=== PATIENT | female | born 1945 | race Caucasian/White ===

== ENCOUNTER 2018-07-02 15:23 | Observation (INO) | payer OTHER ==
--- OUTSIDE RECORDS SUMMARY | 2018-07-02 15:25 | XMS REPORT | Clinical Summary ---
:1945 Author Organization [facility] Address [address] [place] [address] Care Team Providers Name Role Phone Koby Urena MD Primary Care Provider Allergies Active Allergy Reactions Severity Noted Date Comments Diphenhydramine Tannate 03/29/2018 Current Medications Prescription Sig. Disp. Refills Start Date End Date Status levothyroxine Take 75 mcg by mouth Active (SYNTHROID, LEVOXYL) 75 every morning. mcg tablet multivitamin capsule Take 1 capsule by Active mouth daily. ascorbate calcium Take by mouth. Active (VITAMIN C ORAL) magnesium oxide 250 mg Take 250 mg by mouth Active tablet daily. BIOTIN ORAL Take by mouth. Active melatonin 5 mg tablet Take by mouth. Active tablet lidocaine HCl (LIDOCAINE 20 mg by mucous Active VISCOUS MM) membrane route. lidocaine (XYLOCAINE) 2 Apply topically as Active % jelly needed for mild pain. Active Problems Problem Noted Date Gastroesophageal reflux disease without esophagitis 04/02/2018 Last Assessment & Plan: The patient complains of heartburn and regurgitation that has worsened over the past year. 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 Her last EGD on 03/22/18 showed a 9 mm stenosis. The patient will need an esophagram, high resolution esophageal manometry as well as a 48-hour gordon pH study. She will return to clinic after testing is complete. Encounters Date Type Specialty Care Team Description 05/30/2018 Procedure Pass Gastroenterology 05/30/2018 Surgery Gastroenterology Xin Baker ESOPHAGEAL MANOMETRY MD Quentin WITH GORDON 48 HOUR RETURN 05/28/2018 Hospital Encounter Gastroenterology Xin Baker MD 05/28/2018 Procedure Pass Gastroenterology 05/28/2018 Surgery Gastroenterology Xin Baker MD 05/24/2018 Hospital Encounter Gastroenterology Xin Baker MD 04/06/2018 Telephone General Surgery Sander Nichole MD 03/29/2018 Hospital Encounter Radiology Sander Nichole Gastroesophageal reflux disease, esophagitis presence not specified 03/29/2018 Office Visit General Surgery Sander Nichole Gastroesophageal reflux disease without esophagitis (Primary Dx) 03/29/2018 Orders Only General Surgery Sander Nichole Gastroesophageal reflux disease, esophagitis presence not specified (Primary Dx) after 07/01/2017 Family History Medical History Relation Name Comments Cancer Brother Cancer Brother COPD Brother No Known Problems Daughter Cancer Father Cancer Mother Dementia Sister No Known Problems Sister Cancer Sister No Known Problems Son Relation Name Status Comments Brother Brother Brother Daughter Alive Father Maternal Grandfather Maternal Grandmother Mother Paternal Grandfather Paternal Grandmother Sister Alive Sister Sister Son Alive Social History Tobacco Use Types Packs/Day Years Used Date Former Smoker Cigarettes 1 20 Quit: 1998 Smokeless Tobacco: Never Used Alcohol Use Drinks/Week oz/Week Comments Yes 3 Standard drinks or equivalent 1.8 Sex Assigned at Date Recorded Not on file Last Filed Vital Signs Vital Sign Reading Time Taken Blood Pressure 128/58 05/28/2018 1:17 PM CDT Pulse 72 05/28/2018 1:17 PM CDT Temperature 36.7 C (98.1 F) 05/28/2018 12:44 PM CDT Respiratory Rate 20 05/28/2018 12:44 PM CDT Oxygen Saturation 94% 05/28/2018 1:17 PM CDT Inhaled Oxygen Concentration - - Weight 57.1 kg (125 lb 12.8 oz) 03/29/2018 12:10 PM CDT Height 162.6 cm (5' 4") 03/29/2018 12:10 PM CDT Body Mass Index 21.59 03/29/2018 12:10 PM CDT Plan of Treatment Health Maintenance Due Date Last Done Comments BREAST CANCER SCREENING 1997 COLON CANCER SCREENING 1997 SHINGRIX VACCINE (#1) 1997 ZOSTER VACCINE 2007 PNEUMOCOCCAL-13 2012 INFLUENZA VACCINE 05/16/2018 06/16/2012 PNEUMOCOCCAL POLYSACCHARIDE VACCINE AGE 65 AND OVER Completed 08/16/2011 Procedures Procedure Name Priority Date/Time Associated Diagnosis Comments GORDON CAPSULE 05/28/2018 12:00 PM CDT Chronic GERD Case Notes DR NICHOLE ORDERING Special Needs DR NICHOLE ORDERING [place] ESOPHAGRAM STAT 03/29/2018 2:32 PM Gastroesophageal reflux Results for this COMPLETE CDT disease, esophagitis procedure are in presence not specified the results section. after 07/01/2017 Results [place] Esophagram Complete (03/29/2018 2:32 PM) Narrative Performed At EXAMINATION:[place] ESOPHAGRAM COMPLETE RADIANT CLINICAL HISTORY:K21.9 Gastro-esophageal reflux disease without esophagitis, GERD COMPARISON:None. Fluoroscopy time: 1.9 minutesTOTAL IMAGES: 42Peak Skin Dose:33 mGy FINDINGS: The patient swallowed barium contrast without difficulty. There is diminished peristalsis of the esophagus. A small amount of debris/retained material is noted within the distal esophagus. A moderate degree of delay is noted in clearing of the contrast from the distal esophagus with a closed lower esophageal sphincter. There is intermittent, delayed clearing of the contrast through the LES. No focal mucosal abnormality is identified. There is no evidence of stricture. The esophagogastric junction is unremarkable. There is no evidence of gastroesophageal reflux. A trace amount of contrast did enter the airway relating to silent aspiration. 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 IMPRESSION: Esophageal dysmotility. There is moderately diminished peristalsis involving the esophagus with a moderate delay in clearing clearing of the contrast from the distal esophagus/LES. Trace silent aspiration. [facility]-[id number] Procedure Note Interface, Radiology Results Incoming - 03/29/2018 2:59 PM CDT EXAMINATION: [place] ESOPHAGRAM COMPLETE CLINICAL HISTORY: K21.9 Gastro-esophageal reflux disease without esophagitis, GERD COMPARISON: None. Fluoroscopy time: 1.9 minutes TOTAL IMAGES: 42 Peak Skin Dose: 33 mGy FINDINGS: The patient swallowed barium contrast without difficulty. There is diminished peristalsis of the esophagus. A small amount of debris/retained material is noted within the distal esophagus. A moderate degree of delay is noted in clearing of the contrast from the distal esophagus with a closed lower esophageal sphincter. There is intermittent, delayed clearing of the contrast through the LES. No focal mucosal abnormality is identified. There is no evidence of stricture. The esophagogastric junction is unremarkable. There is no evidence of gastroesophageal reflux. A trace amount of contrast did enter the airway relating to silent aspiration. 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 IMPRESSION: Esophageal dysmotility. There is moderately diminished peristalsis involving the esophagus with a moderate delay in clearing clearing of the contrast from the distal esophagus/LES. Trace silent aspiration. [facility]-[id number] Performing Organization Address City/State/Zipcode Phone Number [facility] [address] [place] [address] after 07/01/2017 Insurance Payer Benefit Plan / Group Subscriber ID Type Phone Address MEDICARE MEDICARE PART A AND B xxxxxxxxxx Medicare [place], [place] AETNA AETNA PPO OPEN CHOICE xxxxxxxxx PPO y [phone] [place] [phone]
--- OUTSIDE RECORDS SUMMARY | 2018-07-02 15:25 | XMS REPORT ---
:1945 Author Organization [employer] Care Team Providers Name Role Phone Stuart Pino Provider Role Unavailable Allergies, Adverse Reactions, Alerts Substance Reaction Event Type Dytan Info Not Available Drug Allergy Problems Problem Type Condition Code Onset Dates Condition Status Problem Attention to tracheostomy V55.0 Active Problem Vocal cord paralysis, J38.0# 478.3 Active Problem Mechanical complication of 519.02 Active tracheostomy Problem Edema of larynx J38.4 Active Problem Acute tracheitis without J04.10 Active obstruction Problem Vocal cord paralysis J38.00 Active Problem Other specified disorders of H69.82 Active Eustachian tube, left ear Problem Allergic rhinitis, seasonal J30.2 Active Problem 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 Active Problem Otalgia, left ear H92.02 Active Assessment 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 Active Assessment Allergic rhinitis, seasonal J30.2 Active Assessment Vocal cord paralysis J38.00 Active Problem 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
--- OUTSIDE RECORDS SUMMARY | 2018-07-02 15:25 | XMS REPORT ---
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
--- OUTSIDE RECORDS SUMMARY | 2018-07-02 15:25 | XMS REPORT ---
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 and smell * Assessment Allergic rhinitis, seasonal J30.2 Active Problem Deviated nasal septum J34.2 Active Assessment Edema of larynx J38.4 Active Problem Hypertrophy of nasal turbinates J34.3 Active Medications Medication Code Code Instructions Start End Status Dosage System Date Date Levothyroxine [facility] [address]-76 Active not Sodium defined Qnasl [facility] 89394147833 80 MCG/ACT Jul 15, Active 2 puffs Nasally Once a 2015 in each day nostril Tylenol Cold NDC 0 Active not Relief defined Diflucan ND 26374789922 100 MG Orally January Active 1 tablet Three times a 2017 Results No Known Results Summary Purpose [employer] Submission
--- NOTE | 2018-07-02 16:07 | RAD REPORT ---
EXAM DESCRIPTION: RAD - Chest Pa And Lat (2 Views) - 07/02/2018 3:58 pm CLINICAL HISTORY: Bloody productive cough COMPARISON: January 2018 TECHNIQUE: PA and lateral views of the chest were obtained. FINDINGS: The lungs are normal volume. The anteromedial right lung base opacification is present. In the acute clinical setting this is most likely pneumonia. No similar finding in January. Malignant ma ss is a lesser consideration. Repeat imaging can be performed following pneumonia medical management to assure resolution. Trach tube is in place. Trachea is midline. Heart size is normal and central vasculature is within no rmal limits. No pleural effusion or pneumothorax seen. No acute bony finding noted. No aortic abno rmality. IMPRESSION: Anterior right lung base opacification most likely pneumonia. Continued close follow-up is needed to assure clearing and no underlying mass.
[2018-07-02 17:10] LABS: Absolute Lymphocytes (CBC) 1.3 K/uL (0.7-4.9); Absolute Monocytes 0.9 K/uL (0.1-1.3); Absolute Neutrophil 6.1 K/uL (1.8-8.0); Basophils % 0.8 % (0-1.3); Eosinophils % 2.1 % (0-4.4); Hematocrit 35.6 % (36.0-45.0); Lymphocytes % 15.5 % (15.3-44.8); MCH 30.2 pg (27.0-35.0); MCV 89.9 fL (80-100); Monocytes % 10.4 % (3.3-12.3); RBC Red Blood Cell Count 3.96 M/uL (3.86-4.86)
[2018-07-02 17:12] LABS: Protime INR 0.94
[2018-07-02 17:26] LABS: ALT/SGPT 18 U/L (12-78); AST/SGOT 15 U/L (15-37); Albumin 3.4 g/dL (3.4-5.0); Alkaline Phosphatase 82 U/L (45-117); BUN Blood Urea Nitrogen 19 mg/dL (7-18); Bicarbonate 32 mmol/L (21-32); Bilirubin Direct < 0.1 mg/dL (0-0.2); Bilirubin Total 0.2 mg/dL (0.2-1.0); CKMB Creatine Kinase MB < 1.0 ng/mL (0.3-3.6); Creatine Phosphokinase 74 U/L (26-192); Glucose Level 96 mg/dL (74-106); Lipase 132 U/L (73-393); Potassium 3.8 mmol/L (3.5-5.1); Protein, Total 7.9 g/dL (6.4-8.2); Sodium Level 138 mmol/L (136-145); Troponin (Emerg Dept Use Only) < 0.02 ng/mL (0.0-0.045)
[2018-07-02] MEDS ORDERED: PIPER/TAZO/NS 3.375gm 3.375 GM/100 ML BAG ONE (17:41)
--- NOTE | 2018-07-02 18:09 | EDPHYS ---
Physician Documentation [facility] Name: Abeba Forrester Age: 72 yrs Sex: Female : 1945 Arrival Date: 07/02/2018 Time: 15:24 Bed 15 Private MD: Koby Urena ED Physician Bernabe Lyman HPI: 07/02 16:37 This 72 yrs old Female presents to ER via Ambulatory with complaints of snw Productive Cough - BLOOD. 16:37 The patient or guardian reports cough, described as mild. Onset: The symptoms/episode snw began/occurred suddenly, today. Severity of symptoms: At their worst the symptoms were mild, moderate. Associated signs and symptoms: Pertinent positives: "sinus infection". The patient has not experienced similar symptoms in the past. It is unknown whether or not the patient has recently seen a physician. 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 Denies bleeding in the past. Historical: - Allergies: 16:34 Dytan; kr2 - Home Meds: 17:14 levothyroxine 75 mcg tab [Active]; caltrate [Active]; Vitryes [Active]; Multivitamins kr2 [Active]; Vitamin C Oral [Active]; Magnesium Oxide Oral [Active]; biotin oral oral [Active]; Melatonin Oral [Active]; 17:20 Lidocaine Viscous 2 % Oral soln 15 mL [Active]; kr2 - PMHx: 17:20 Hypothyroidism; Breast scar tissue removal; kr2 - PSHx: 17:20 Trach; G tube; kr2 - Immunization history:: Adult Immunizations unknown. - Social history:: Smoking status: Patient/guardian denies using tobacco. - Ebola Screening: : No symptoms or risks identified at this time. ROS: 16:34 Constitutional: Negative for fever, chills, and weight loss, Eyes: Negative for injury, snw pain, redness, and discharge, ENT: Negative for injury, pain, and discharge, Neck: Negative for injury, pain, and swelling, Cardiovascular: Negative for chest pain, palpitations, and edema, Respiratory: Negative for shortness of breath, wheezing, and pleuritic chest pain, mild cough with blood today x 2. Abdomen/GI: Negative for abdominal pain, nausea, vomiting, diarrhea, and constipation, Back: Negative for injury and pain, : Negative for injury, bleeding, discharge, and swelling, MS/Extremity: Negative for injury and deformity, Skin: Negative for injury, rash, and discoloration, Neuro: Negative for headache, weakness, numbness, tingling, and seizure. Exam: 16:34 Constitutional: This is a well developed, well nourished patient who is awake, alert, snw and in no acute distress. Head/Face: Normocephalic, atraumatic. Eyes: Pupils equal round and reactive to light, extra-ocular motions intact. Lids and lashes normal. Conjunctiva and sclera are non-icteric and not injected. Cornea within normal limits. Periorbital areas with no swelling, redness, or edema. ENT: Nares patent. No nasal discharge, no septal abnormalities noted. Tympanic membranes are normal and external auditory canals are clear. Oropharynx with no redness, swelling, or masses, exudates, or evidence of obstruction, uvula midline. Mucous membranes moist. Neck: Trachea midline, no thyromegaly or masses palpated, and no cervical lymphadenopathy. Supple, full range of motion without nuchal rigidity, or vertebral point tenderness. No Meningismus. Chest/axilla: Normal chest wall appearance and motion. Nontender with no deformity. No lesions are appreciated. Cardiovascular: Regular rate and rhythm with a normal S1 and S2. No gallops, murmurs, or rubs. Normal PMI, no JVD. No pulse deficits. Abdomen/GI: Soft, non-tender, with normal bowel sounds. No distension or tympany. No guarding or rebound. No evidence of tenderness throughout. Back: No spinal tenderness. No costovertebral tenderness. Full range of motion. Skin: Warm, dry with normal turgor. Normal color with no rashes, no lesions, and no evidence of cellulitis. MS/ Extremity: Pulses equal, no cyanosis. Neurovascular intact. Full, normal range of motion. Neuro: Awake and alert, GCS 15, oriented to person, place, time, and situation. Cranial nerves II-XII grossly intact. Motor strength 5/5 in all extremities. Sensory grossly intact. Cerebellar exam normal. Normal gait. 16:34 Respiratory: the patient does not display signs of respiratory distress, Respirations: shallow respirations, Breath sounds: are clear throughout, tracheostomy. Vital Signs: 16:28 BP 176 / 89; Pulse 78; Resp 20; Pulse Ox 99% on R/A; Weight 56.7 kg; Height 5 ft. 5 in. kr2 (165.10 cm); Pain 0/10; 17:30 BP 166 / 52; Pulse 75; Resp 19; Temp 99; Pulse Ox 99% on R/A; kr2 19:30 BP 136 / 66; Pulse 72; Resp 18; Pulse Ox 99% on R/A; kr2 16:28 Body Mass Index 20.80 (56.70 kg, 165.10 cm) kr2 MDM: 15:51 Patient medically screened. snw 18:08 Data reviewed: vital signs, nurses notes. Data interpreted: Pulse oximetry: on room air snw is 99 %. Interpretation: normal. Counseling: I had a detailed discussion with the patient and/or guardian regarding: the historical points, exam findings, and any diagnostic results supporting the discharge/admit diagnosis, the presence of at least one elevated blood pressure reading (>120/80) during this emergency department visit, lab results, radiology results, the need for further work-up and treatment in the hospital. Physician consultation: Koby Urena MD was called at 18:09, was contacted at 18:09, regarding admission, to the telemetry unit. would like consultation with Dr. Dr. Griffith. 07/02 16:12 Order name: T\\T\\S; Complete Time: 18:25 snw 07/02 16:12 Order name: Basic Metabolic Panel; Complete Time: 17:29 snw 07/02 16:12 Order name: Blood Culture Adult (2) snw 07/02 16:12 Order name: C-Reactive Protein; Complete Time: 17:29 snw 07/02 16:12 Order name: CBC with Diff; Complete Time: 17:29 snw 07/02 16:12 Order name: Ckmb; Complete Time: 17:29 snw 07/02 16:12 Order name: CPK; Complete Time: 17:29 snw 07/02 16:12 Order name: Lactate; Complete Time: 17:46 snw 07/02 16:12 Order name: LFT's; Complete Time: 17:29 snw 07/02 16:12 Order name: Lipase; Complete Time: 17:29 snw 07/02 16:12 Order name: Procalcitonin [facility] 07/02 16:12 Order name: Protime (+inr); Complete Time: 17:21 snw 07/02 16:12 Order name: Ptt, Activated; Complete Time: 17:21 w 07/02 16:12 Order name: Sed Rate; Complete Time: 17:29 snw 07/02 15:38 Order name: Chest Pa And Lat (2 Views) XRAY; Complete Time: 16:10 w 07/02 16:12 Order name: Troponin (emerg Dept Use Only); Complete Time: 17:29 snw 07/02 16:12 Order name: Accucheck; Complete Time: 16:49 snw 07/02 16:12 Order name: Cardiac monitoring; Complete Time: 16:48 w 07/02 16:12 Order name: EKG - Nurse/Tech; Complete Time: 18:18 snw 07/02 16:12 Order name: IV Saline Lock - Large Bore; Complete Time: 16:49 w 07/02 16:12 Order name: Labs collected and sent; Complete Time: 16:49 w 07/02 16:12 Order name: O2 Per Protocol; Complete Time: 16:49 w 07/02 16:12 Order name: O2 Sat Monitoring; Complete Time: 16:49 w 07/02 18:07 Order name: Sputum Culture [facility] 07/02 18:29 Order name: CONS Physician Consult EDMS 07/02 19:13 Order name: ABO/RH no charge; Complete Time: 19:14 EDMS Administered Medications: 17:40 Drug: Zosyn 3.375 grams Route: IVPB; Infused Over: 60 mins; Site: right antecubital; kr2 18:40 Follow up: Response: No adverse reaction; IV Status: Completed infusion kr2 07/03 01:06 Not Given (Medication not available): Mycelex 1 units Mucous Membrane once kr2 Disposition: 07:26 Co-signature as Attending Physician, Bernabe Lyman MD I agree with the assessment and pablo plan of care. Disposition: 07/02/18 18:08 Hospitalization ordered by Koby Urena for Observation. Preliminary diagnosis are Pneumonia, unspecified organism, Hemoptysis. - Bed requested for Telemetry/MedSurg (observation). - Status is Observation. kr2 - Condition is Stable. - Problem is new. - Symptoms are unchanged. UTI on Admission? No Signatures: Dispatcher [employer] EDAllyson Tony RN RN Bernabe Cuadra MD MD cha Therrien, Shelly, DYE COLORIST DYER-C DYE COLORIST DYER-Csnw Modesta Abbasi, ISIDORO RN kr2 Corrections: (The following items were deleted from the chart) 07/02 16:49 15:38 Misc. Order ordered. snw kr2 18:38 18:08 Hospitalization Ordered by Koby Urena MD for Observation. Preliminary dw diagnosis is Pneumonia, unspecified organism; Hemoptysis. Bed requested for Telemetry/MedSurg (observation). Status is Observation. Condition is Stable. Problem is new. Symptoms are unchanged. UTI on Admission? No. snw 20:22 18:38 07/02/2018 18:08 Hospitalization Ordered by Koby Urena MD for Observation. kr2 Preliminary diagnosis is Pneumonia, unspecified organism; Hemoptysis. Bed requested for Telemetry/MedSurg (observation). Status is Observation. Condition is Stable. Problem is new. Symptoms are unchanged. UTI on Admission? No. dw
--- NOTE | 2018-07-02 18:09 | ER ---
Nurse's Notes [facility] Name: Abeba Forrester Age: 72 yrs Sex: Female : 1945 Arrival Date: 07/02/2018 Time: 15:24 Bed 15 Private MD: Koby Urena Diagnosis: Pneumonia, unspecified organism;Hemoptysis Presentation: 07/02 16:00 Presenting complaint: Patient states: I have had this persistent cough, for a couple sg days now, its getting worse today, is painful and has a little bit of blood in the stuff i cough up. Transition of care: patient was not received from another setting of care. Onset of symptoms was July 02, 2018. Risk Assessment: Do you want to hurt yourself or someone else? Patient reports no desire to harm self or others. Initial Sepsis Screen: Does the patient meet any 2 criteria? No. Patient's initial sepsis screen is negative. Does the patient have a suspected source of infection? No. Patient's initial sepsis screen is negative. Care prior to arrival: None. 16:00 Acuity: MARIE 3 sg 16:00 Method Of Arrival: Ambulatory sg Triage Assessment: 16:10 General: Appears in no apparent distress. comfortable, well groomed, well developed, kr2 well nourished, Behavior is calm, cooperative, appropriate for age. Respiratory: Reports cough that is productive, Onset: The symptoms/episode began/occurred this morning, the patient has mild shortness of breath. Historical: - Allergies: 16:34 Dytan; kr2 - Home Meds: 17:14 levothyroxine 75 mcg tab [Active]; caltrate [Active]; Vitryes [Active]; Multivitamins kr2 [Active]; Vitamin C Oral [Active]; Magnesium Oxide Oral [Active]; biotin oral oral [Active]; Melatonin Oral [Active]; 17:20 Lidocaine Viscous 2 % Oral soln 15 mL [Active]; kr2 - PMHx: 17:20 Hypothyroidism; Breast scar tissue removal; kr2 - PSHx: 17:20 Trach; G tube; kr2 - Immunization history:: Adult Immunizations unknown. - Social history:: Smoking status: Patient/guardian denies using tobacco. - Ebola Screening: : No symptoms or risks identified at this time. Screenin:10 Abuse screen: Denies threats or abuse. Denies injuries from another. Nutritional kr2 screening: No deficits noted. Tuberculosis screening: No symptoms or risk factors identified. Fall Risk None identified. Assessment: 16:10 General: Appears in no apparent distress. comfortable, well groomed, well developed, kr2 well nourished, Behavior is calm, cooperative, appropriate for age. Pain: Denies pain. Neuro: Level of Consciousness is awake, alert, obeys commands, Oriented to person, place, time, situation. Cardiovascular: Capillary refill < 3 seconds in bilateral fingers Patient's skin is warm and dry. Rhythm is sinus rhythm. Respiratory: Reports cough that is productive, pain with cough Airway is patent Trachea midline Respiratory effort is even, unlabored, Respiratory pattern is regular, symmetrical, Sputum is thick, green Patient has a trach with speaking valve in place at this time Breath sounds are coarse bilaterally. GI: Abdomen is flat, non-distended. GI: PEG tube in place, clamped. Site clean. : Denies burning with urination, inability to void. EENT: Oral mucosa is moist. Throat is clear. Derm: Skin is intact, is healthy with good turgor, Skin is pink, warm \T\ dry. Musculoskeletal: Circulation, motion, and sensation intact. 17:30 Reassessment: Patient appears in no apparent distress at this time. Patient and/or kr2 family updated on plan of care and expected duration. Pain level reassessed. Patient is alert, oriented x 3, equal unlabored respirations, skin warm/dry/pink. Patient denies pain at this time. 18:30 Reassessment: Patient appears in no apparent distress at this time. Patient and/or kr2 family updated on plan of care and expected duration. Pain level reassessed. Patient is alert, oriented x 3, equal unlabored respirations, skin warm/dry/pink. Patient denies pain at this time. 19:30 Reassessment: Patient appears in no apparent distress at this time. Patient and/or kr2 family updated on plan of care and expected duration. Pain level reassessed. Patient is alert, oriented x 3, equal unlabored respirations, skin warm/dry/pink. Patient denies pain at this time. Patient states feeling better. 20:15 Reassessment: Patient appears in no apparent distress at this time. Patient and/or kr2 family updated on plan of care and expected duration. Pain level reassessed. Patient is alert, oriented x 3, equal unlabored respirations, skin warm/dry/pink. 20:15 Reassessment: Patient reports that she is usually given medication to prevent her from kr2 getting thrush when she is on antibiotics. Provider notified, medication ordered not available. No new orders at this time. Vital Signs: 16:28 BP 176 / 89; Pulse 78; Resp 20; Pulse Ox 99% on R/A; Weight 56.7 kg; Height 5 ft. 5 in. kr2 (165.10 cm); Pain 0/10; 17:30 BP 166 / 52; Pulse 75; Resp 19; Temp 99; Pulse Ox 99% on R/A; kr2 19:30 BP 136 / 66; Pulse 72; Resp 18; Pulse Ox 99% on R/A; kr2 16:28 Body Mass Index 20.80 (56.70 kg, 165.10 cm) kr2 ED Course: 15:24 Patient arrived in ED. sb2 15:24 Koby Urena MD is Private Physician. sb2 15:51 Yareli Lopez FNP-C is [facility]. snw 15:51 Bernabe Lyman MD is Attending Physician. snw 15:58 Chest Pa And Lat (2 Views) XRAY In Process Unspecified. EDMS 16:00 Arm band placed on. sg 16:01 Triage completed. sg 16:10 Patient has correct armband on for positive identification. Bed in low position. Call kr2 light in reach. Side rails up X 1. Adult w/ patient. teletypesetter monitor on. Pulse ox on. NIBP on. Door closed. Warm blanket given. Head of bed elevated. 16:17 Modesta Abbasi, RN is Primary Nurse. kr2 16:37 Initial lab(s) drawn, by va, sent to lab. First set of blood cultures drawn by va. 3 Inserted saline lock: 20 gauge in right antecubital area, using aseptic technique. Blood collected. 16:37 T\T\S collected, blood band applied to patient. dh3 17:03 Second set of blood cultures drawn by va, by venipuncture 23G to right wrist. dh3 18:08 Koby Urena MD is Hospitalizing Provider. snw 20:15 No provider procedures requiring assistance completed. Patient admitted, IV remains in kr2 place. Administered Medications: 17:40 Drug: Zosyn 3.375 grams Route: IVPB; Infused Over: 60 mins; Site: right antecubital; kr2 18:40 Follow up: Response: No adverse reaction; IV Status: Completed infusion kr2 07/03 01:06 Not Given (Medication not available): Mycelex 1 units Mucous Membrane once kr2 Outcome: 07/02 16:10 Admitted to Tele accompanied by nurse, family with patient, via wheelchair, room 422, kr2 with chart, Report called to Bibiana Condition: stable Instructed on the need for admit, Demonstrated understanding of instructions. 18:08 Decision to Hospitalize by Provider. snw 20:22 Patient left the ED. kr2 Signatures: Dispatcher [employer] EDMS Chris Heaton RN RN Yareli Jiménez, MOBILE QA TESTER-C MOBILE QA TESTER-Csnw Daylin Mora 3 Modesta Abbasi RN RN kr2 Farzaneh Rdz sb2 Corrections: (The following items were deleted from the chart) 17:10 16:37 Inserted saline lock: 20 gauge in right antecubital area, using aseptic dh3 technique. Blood collected. dh3
[2018-07-02] MEDS ORDERED: ONDANSETRON 4 MG/2 ML VIAL IV PRN (20:38)
[2018-07-02] MEDS ORDERED: ALBUTEROL 2.5 MG/3 ML NEB SOL NEB PRN (20:38)
[2018-07-02] MEDS ORDERED: IPRATROPIUM BROM 0.5MG/2.5ML NEB PRN (20:38)
[2018-07-02] MEDS ORDERED: HYDROCODONE/APAP 5/325 MG TAB PO PRN (20:38)
[2018-07-02] MEDS ORDERED: TEMAZEPAM 15 MG CAP PO PRN (21:45)
[2018-07-02] MEDS: FLUCONAZOLE 100 MG TAB PO SCH (22:56)
[2018-07-03] MEDS ORDERED: PIPER/TAZO/NS 3.375gm 3.375 GM/100 ML BAG ONE (00:49)
[2018-07-03] MEDS ORDERED: PIPER/TAZO/NS 3.375gm 3.375 GM/100 ML BAG IVPB SCH (01:00)
[2018-07-03 05:53] LABS: Absolute Lymphocytes (CBC) 1.1 K/uL (0.7-4.9); Absolute Monocytes 0.9 K/uL (0.1-1.3); Basophils % 0.8 % (0-1.3); Eosinophils % 3.4 % (0-4.4); Hematocrit 33.3 % (36.0-45.0); Lymphocytes % 14.9 % (15.3-44.8); MCH 30.6 pg (27.0-35.0); MPV 8.5 fL (7.6-11.3); Monocytes % 12.4 % (3.3-12.3); RBC Red Blood Cell Count 3.75 M/uL (3.86-4.86)
[2018-07-03 06:03] LABS: BUN Blood Urea Nitrogen 14 mg/dL (7-18); Bicarbonate 31 mmol/L (21-32); Glucose Level 94 mg/dL (74-106); Potassium 3.8 mmol/L (3.5-5.1); Sodium Level 139 mmol/L (136-145)
--- NOTE | 2018-07-03 08:41 | P.CNS ---
Date of Consult: 07/03/18 Reason for Consult: Hemoptysis Chief Complaint: Hemoptysis History of Present Illness: Patient is 72 years of age admitted with sudden onset of hemoptysis she has some chills over the weekend time opt this is has resolved patient has a trach this was inserted after patient developed vocal cord paralysis she has had a head and neck cancer was treated with radiation patient has a trach for about 6 years denies any baseline shortness of breath no other complaints right now denies any chest pain she is has some chronic lower sternal pain intermittently Allergies Dytan Allergy (Uncoded 07/02/18 21:25) Rash Home Medications: Ascorbic Acid [Vitamin C] 1,000 mg PO DAILY 07/02/18 Calcium Carb/Vit D3/Minerals [Caltrate Plus Tablet] 1 each PO DAILY 07/02/18 Levothyroxine [Synthroid] 75 mcg PO [id number] 07/02/18 Magnesium Oxide [Magnesium] 250 mg PO DAILY 07/02/18 Multivitamin [Daily Multiple Vitamin] 1 each PO DAILY 07/02/18 Viteyes 1 pill PO DAILY 07/02/18 Biotin 1,000 mcg PO DAILY 07/03/18 Lidocaine HCl 1 appl TOP DAILY 07/03/18 Lidocaine HCl [Lidocaine HCl Viscous] 15 ml PO DAILY 07/03/18 Melatonin/Pyridoxine [Melatonin 5 mg Tablet] 1 each PO DAILY 07/03/18 - Past Medical/Surgical History Diabetic: No -: hypothyroidism -: throat ca -: vocal cord paralysis -: angelina lumpectomy -: breast scar tissue removed -: g-tube -: trach - Social History Alcohol use: Yes CD- Drugs: No Caffeine use: Yes Place of Residence: Home Review of Systems 10-point ROS is otherwise unremarkable Physical Examination Temp Pulse Resp BP Pulse Ox 98.7 F 69 18 112/56 L 96 07/03/18 04:00 07/03/18 04:00 07/03/18 04:00 07/03/18 04:00 07/03/18 04:00 General: Alert, Oriented x3 Neck: Supple Respiratory: Clear to auscultation bilaterally Cardiovascular: No edema, Normal S1 S2 Gastrointestinal: Normal bowel sounds, Soft and benign Laboratory Data (last 24 hrs) 07/02/18 16:37: PT 11.1, INR 0.94, APTT 31.9 07/02/18 16:37: WBC 8.6, Hgb 12.0, Hct 35.6 L, Plt Count 350 07/02/18 16:37: Sodium 138, Potassium 3.8, BUN 19 H, Creatinine 0.60, Glucose 96 , Total Bilirubin 0.2, AST 15, ALT 18, Alkaline Phosphatase 82, Lipase 132 - Problems (1) Hemoptysis Current Visit: Yes Status: Acute Plan: Patient is 72 years of age with a history of chronic trach admitted with sudden onset of hemoptysis which seemed to have resolved labs reviewed mildly elevated TSH chest x-ray abnormal right pericardiac infiltrate I have ordered a CT scan of the chest change to p.o. antibiotics cultures pending hemodynamically stable oxygenation satisfactory possible discharge today after the CT scan no clinical evidence of sepsis Félix Morales change to p.o. levofloxacin
[2018-07-03] MEDS ORDERED: levoFLOXacin 500 MG TAB PO SCH (09:00)
[2018-07-03] MEDS: FLUCONAZOLE 100 MG TAB PO SCH (10:06)
--- NOTE | 2018-07-03 10:06 | RAD REPORT ---
EXAM DESCRIPTION: CT - Thorax Wo Con - 07/03/2018 9:11 am CLINICAL HISTORY: Abnormal chest film, mass versus pneumonia anterior right lung base, history of br east augmentation and benign breast biopsies, trach tube is in place COMPARISON: Two view chest July 02 TECHNIQUE: Axial 5 mm thick images of the chest were obtained without IV contrast. All CT scans are performed using dose optimization technique as appropriate and may include automated exposure control or mA/KV adjustment according to patient size. FINDINGS: Trach tube is in place. No air, fluid or soft tissue abnormality surrounding the trach tub e. A 6-7 centimeter area of masslike consolidation is present in the medial right lung base abutting the right heart border. This is within the right middle lobe. There are few air bronchograms seen michela ng the superior margin. This has a rapidly wedge-shaped configuration extending to the infrahilar reg ion on the right. No endobronchial lesion or bronchial tree occlusion. Scarring changes are present i n the posterior gutter on the left. Minimal pleural thickening is seen in the posterior left gutter. No pleural effusion. No pneumothorax. No abnormal mediastinal or hilar masses or lymphadenopathy seen. No gross aortic or pulmonary artery finding suspected. Aortic and Coronary artery calcifications are present. There is a trace amount of pericardial effusion. No chest wall mass or abnormal axillary lymphadenopathy. No abnormality of the breast implants. Disc and bony degenerative changes are present. No pathologic bone process seen. IMPRESSION: Masslike consolidation in the medial right lung base right middle lobe. Parenchymal and pleural scarring changes in the posterior gutter on the left. Right middle lobe finding favors pneumonia but needs correlation with pneumonia symptoms. Malignancy is a lesser likely differential consideration. However, continued close follow-up is neede d to assure clearing. In this location with breast implant in place, the mass is not amenable to percutaneous tissue sampli ng.
--- NOTE | 2018-07-03 15:44 | HP ---
Date of Admission: 07/02/2018 Chief Complaint: Hemoptysis. History Of Present Illness: The patient states for a couple of days she has not felt quite right. S he has some chills and a cough. She felt was her usual sinus drainage; however, that she did notice 2 episodes of blood mixed with yellow from her trach tube. In view of this, it was decided to refer to the emergency room for CT scan and further workup. Past Medical History: The patient has head and neck cancer treated a number of years ago at least ov er 5 for radiation. Shortly thereafter, developed vocal cord paralysis and required a trach. Since that time, she has managed the trach at home. Has not had any episodes of hemoptysis. From time to time, she would go back to [facility] for antibiotics for sinus infection and also treated for the s zurdo problems. In general, she has been quite healthy. She also has a thyroid problem, which is cont rolled on medication. Family History: Noncontributory. Social History: Nonsmoker, nondrinker. Physical Examination: General: The patient is a thin, elderly female, no acute distress with stable vital signs. Head and Neck: Normocephalic. Pupils are equal and reactive to light and accommodation. Fundi nega tive. Trachea midline. Endotracheal tube in place. No adenopathy. Chest: Clear to P and A. Breasts: Augmentation noted. Cardiovascular: PMI midclavicular line. Heart: Sounds normal. Peripheral pulses present and equal bilaterally. Abdomen: No organomegaly. Bowel sounds are present. Extremities: Good tone and movement bilaterally. Reflexes physiologic. Rectal and Pelvic: Deferred. Impression: Hemoptysis probably secondary to pneumonia, post paralysis vocal cord secondary to radia tion for head and neck cancer, by history. Plan: The patient will be admitted, placed on IV antibiotics. CAT scan will be ordered to be seen b y Pulmonology. Depending on the results of this, disposition will be made. HR/MODL Voice ID: [id number]
--- NOTE | 2018-07-03 15:50 | HP ---
Date of Admission: 07/02/2018 The patient states she feels better. She has no further chills. Minimal amount of hemoptysis on 1 o ccasion, felt almost back to baseline other than her sinus problem. Depending on the results of the CAT scan, she may well be discharged to follow up with the findings on the x-ray and scan with And [facility]. /BRENDA Voice ID: [id number]
== END 2018-07-03 14:10 | disposition home or self-care (01) ==
LOC: ER 15:23 → ERHOLD 18:27 → 4TH 19:03
PROVIDERS: ADMIT Family Medicine; ATTEND Family Medicine
DX: R04.2 Hemoptysis (principal); E03.9 Hypothyroidism, unspecified; Z93.0 Tracheostomy status; Z85.89 Personal history of malignant neoplasm of other organs and systems; J38.00 Paralysis of vocal cords and larynx, unspecified
CPT/HCPCS: 36415; 71046; 71250; 80048 ×2; 80076; 82550; 82553; 83605; 83690; 84145; 84439; 84443; 84484; 85025 ×2; 85610; 85652; 85730; 86140; 86850; 86900; 86901; 87040 ×2; 87070; 87077; 87186; 87205; 94760 ×2; 96365; 99285; G0378 ×2; J2543 ×2